=== PATIENT | female | born 1965 | race Caucasian/White ===

== ENCOUNTER → 2019-10-30 13:18 | Outpatient (CLI) | payer OTHER, SELFPAY ==
[2019-10-31 03:08] LABS: COVID19 Sendout Not Detected (Not Detect)
== END ==
PROVIDERS: Visit Provider Registered Nurse
DX: Z01.818 Encounter for other preprocedural examination (principal)
CPT/HCPCS: 87635

== ENCOUNTER 2019-11-02 06:49 | Day surgery (SDC) | payer OTHER, SELFPAY ==
[2019-11-02] VITALS (7 sets, daily range): BP systolic 113–142; BP diastolic 75–87; PULSE 63–75; RESP 15–18; TEMP 36.1–36.6; O2SAT 93–98; BMI 30.7
--- NOTE | 2019-11-02 07:00 | DI.RAD.S_ITS ---
PROCEDURE: XR KUB INDICATIONS: surgical procedure TECHNIQUE: One view of the abdomen acquired. COMPARISON: [facility], CT, CT KUB, 10/12/2019, 13:41. FINDINGS: Surgical changes and devices: Prior cholecystectomy. By position the previously identified right sided urinary tract stone that had been within the renal pelvis on the right appears to have shifted laterally and is superimposed on the expected region of the lower third collecting system of the right kidney. Bowel: Bowel gas pattern is normal. Soft tissues: No suspicious abdominal calcifications. Visualized solid organ contours appear normal in size. Bones: No suspicious bony lesions. IMPRESSION: 8mm persistent right sided urinary tract stone again noted, which by CT scanning had been within the renal pelvis on the right but now appears to have refluxed into the lower third collecting system of the right kidney. Prior cholecystectomy clips. Dictated by: Aman Huston M.D. on 11/02/2019 at 8:10 Approved by: Aman Huston M.D. on 11/02/2019 at 8:12
--- NOTE | 2019-11-02 07:47 | PM.PREOP ---
Pre-operative Note Interval Note History & Physical reviewed/Exam performed by Physician: Yes Changes to H&P: No H&P completed within 30 days and has changed as indicated here:: There are no changes to the history and physical examination scanned into file.
[2019-11-02] MEDS: LACTATED RINGERS 1,000 ML 42 ML IV (07:57)
--- NOTE | 2019-11-02 08:28 | SUR.OPER ---
Supine on ESWL table, head on one pillow, bilateral arms tucked and padded with gel pads. 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
--- NOTE | 2019-11-02 08:51 | SUR.OPER ---
FLOURO TIME 2MIN 3SEC
--- NOTE | 2019-11-02 08:53 | PM.OP.1 ---
Operative Date/Time/Diagnoses Date of procedure: 11/02/19 Time of procedure: 08:53 Pre-op diagnosis: 1. 1.2 cm right renal pelvic calculus. 2. Intractable right renal colic. Post-op diagnosis: same Procedure & Clinicians Procedure: 1. Extracorporeal shock wave lithotripsy-right (maximum power 8.0 x2 1000 shocks). Same procedure as scheduled: Yes Surgeon: Malena Sawyer Click Yes if Unassisted: Yes Anesthesia Type: General Operative Notes Findings: 1.2 cm right intrarenal collecting system calculus Closure Type: not applicable Specimen(s): none sent Estimated Blood Loss (mL): 0 Blood products transfused: none Tourniquet time (min): 0 Procedure in detail: The patient was positioned supine and administered general anesthesia. The above-described stone was then localized in the X and Y and Z planes. Lithotripsy was then commenced at minimal power level for 200 shocks. A 2 minutes pause was then performed. Lithotripsy was again resumed and the power level was gradually increased to maximum of 8.0. The calculus in its fragments were really localize numerous times throughout the case at 2000 shocks there was excellent radiographic evidence of stone fragmentation. Treatment was terminated. Patient was then awakened, transferred to [facility], and transferred to recovery room in stable condition. Complications: none Post-operative Condition: stable Disposition: PACU Plan for aftercare: Discharge home
== END 2019-11-02 09:40 | disposition home or self-care (01) ==
PROVIDERS: PCP General Practice; Referring Provider Specialist; Visit Provider Specialist
PROC: (CPT 50590; principal; 2019-11-02 07:45)
DX: N20.0 Calculus of kidney (principal); I10 Essential (primary) hypertension
CPT/HCPCS: 50590; 74018; J1100; J1885; J2250; J2405; J2704; J3010

== ENCOUNTER → 2022-02-15 13:40 | Outpatient (CLI) | payer OTHER, MEDICAID, SELFPAY ==
--- NOTE | 2022-02-15 13:43 | DI.CT.S_ITS ---
PROCEDURE: CT KIDNEY URETER BLADDER (KUB) INDICATIONS: Kidney stone TECHNIQUE: Axial sections were acquired from the lung bases to the pubic symphysis. Coronal and sagittal reformats were performed. For radiation dose reduction, the following was used: automated exposure control, adjustment of mA and/or kV according to patient size. COMPARISON: None. FINDINGS: Image quality: Excellent. Lung bases: Unremarkable. Heart: No significant findings. URINARY: Right Kidney: No stones or hydronephrosis. Right Ureter: No hydroureter. Left Kidney: No stones or hydronephrosis. Left Ureter: No hydroureter. Bladder: Normal wall thickness. No stones. ABDOMEN: Liver: Unremarkable. Gallbladder: Cholecystectomy. Biliary ducts: Unremarkable. Pancreas: Unremarkable. Spleen: Unremarkable. Adrenal Glands: Unremarkable. Stomach and Bowel: Stomach, small bowel loops, and colon are unremarkable. Peritoneum: No abnormal intraperitoneal fluid. No free air. Ventral Wall: No hernia. Abdominal Nodes: No enlarged retroperitoneal or mesenteric lymph nodes. Vessels: Aorta and inferior vena cava are normal in size. PELVIS: Pelvic Organs: Unremarkable. Pelvic Nodes: Unremarkable. Miscellaneous: No inguinal hernias are seen. Bones: Unremarkable. IMPRESSION: No urinary tract calculus, hydronephrosis, or hydroureter. Dictated by: Kan Curran M.D. on 02/15/2022 at 14:12 Approved by: Kan Curran M.D. on 02/15/2022 at 14:14
== END ==
PROVIDERS: PCP Family Medicine; Referring Provider Specialist; Visit Provider Specialist
DX: N20.0 Calculus of kidney (principal); R39.9 Unspecified symptoms and signs involving the genitourinary system; Z87.442 Personal history of urinary calculi
CPT/HCPCS: 74176